=== PATIENT | female | born 1960 | race Caucasian/White ===

== ENCOUNTER → 2021-02-21 | Outpatient (CLI) | payer BC | LOC: ULTRA 07:17 | PROVIDERS: ATTEND Otolaryngology Plastic Surgery within the Head & Neck | DX: E21.0 Primary hyperparathyroidism (principal); E03.9 Hypothyroidism, unspecified ==

== ENCOUNTER 2021-03-13 07:12 | Observation (INO) | payer BC ==
[~2021-03-13] VITALS: Ht 167.6 cm; Wt 129.3 kg
[~2021-03-13 07:12] MED LIST: ATORVASTATIN CA20 MG PO; INDERAL LA60 MG PO; LEVOTHYROXINE150 MCG PO; PROTONIX40 M2 PO; SUMATRIPTAN SU100 MG PO
[2021-03-13 09:30] VITALS: BP 138/63
[2021-03-13 15:24] VITALS: BP 136/77
--- NOTE | 2021-03-13 16:42 | O ---
[facility] [place] [address] OPERATIVE REPORT Name: SAPPHIRE ALVARADO Room #: 444-P [facility].Nilo#: [id number] Admission: 03/13/21 Attend Phys: Lars Gutierrez MD Discharge: Date of : 62 Report #: [id number] THIS REPORT FOR: cc: EASTON DIETRICH MD,EASTON Gutierrez,Lars Hutchins MD ~ DOC #: [id number] cc: Easton Dietrich MD, MD Lars Richardson MD DATE OF SERVICE: 03/13/2021 PREOPERATIVE DIAGNOSIS: 1. Primary hyperparathyroidism. 2. Hypercalcemia. 3. Morbid obesity. POSTOPERATIVE DIAGNOSES: 1. Primary hyperparathyroidism. 2. Hypercalcemia. 3. Morbid obesity. OPERATION PERFORMED: Parathyroidectomy. SURGEON: Lars Gutierrez MD ANESTHESIA: General endotracheal. INDICATIONS: The patient is a 60-year-old referred by her black studies professor, Dr. Almaraz, and her primary care physician, Dr. Dietrich, for otolaryngic evaluation of hyperparathyroidism. The patient was found to have an elevated calcium of 10.8 with a PTH of 146. Localization studies including sestamibi scan and ultrasound failed to locate this mass, but did give a hint of something in the left lobe. Recommendations were made for surgical exploration and parathyroidectomy. DESCRIPTION OF THE PROCEDURE: The patient was brought to the operating room and placed supine on the operating table. After adequate general anesthesia was achieved via endotracheal intubation with a nerve integrity monitoring endotracheal tube, her neck was extended and she was prepped and draped sterilely. The patient has morbid obesity requiring bilateral arm holds in addition to a taping of the adipose tissue in the chest inferiorly to access the neck. The planned incision was marked out in a relaxed skin tension line and injected with 1% Xylocaine with 1:100,000 epinephrine. As a separate part of the procedure, the leads from the endotracheal tube were [facility] [address] [place] [address] OPERATIVE REPORT Name: SAPPHIRE ALVARADO RAJANI Room #: 444-P [facility]..#: [id number] Admission: 03/13/21 Attend Phys: Lars Gutierrez MD Discharge: Date of : 62 Report #: [id number] attached to the facial nerve monitor. Separate ground electrodes were placed in the soft tissue overlying the sternum and contralateral shoulder. Electrode resistance and impedance was measured and found to be acceptable. Threshold and stimulus intensity parameters were set and the patient was monitored for the entirety of the case of approximately two hours in order to locate and protect the recurrent laryngeal nerve. She was then prepped and draped sterilely. The procedure began with incision through skin and subcutaneous tissue and platysma. Subplatysmal flaps were elevated superiorly and inferiorly. There was a great depth of adipose tissue present, which was difficult to mobilize and get out of the way for the procedure. Dissection was made down to the strap muscles. These were divided vertically in the midline and retracted laterally. Again, I needed appendiceal retractors and because of the depth of the wound, making the surgery much more difficult. Once the strap muscles were identified, these were divided vertically in the midline and retracted laterally. Dissection began on the left side, as there was some hint that there might be uptake of the Sesamibi scan and dissection began inferiorly. The inferior parathyroid was found in its usual anatomic position with the inferior thyroid artery just inferior to the lobe. This appeared slightly larger than normal, but not worrisome. The parathyroid probe from [employer] was then used to confirm. Dissection then began laterally on the thyroid gland. Superior parathyroid hint of it was seemed to be found, but it was not definitive. Attention was then turned to the right side. This was dissected as well. The inferior parathyroid on this side was found easily running with the inferior thyroid artery. Again, this was normal size. Superior parathyroid was not identified on this side and there was minimal uptake from the parathyroid probe. Attention was then returned to the left side where I had a hint of this uptake and this was dissected and there seemed to be a bulge palpable inside of the thyroid. Upon dissection then, I got better uptake with the probe. Intrathyroidal parathyroid was then dissected free of the thyroid superior lobe. This measured about 1.5 cm and clearly seemed to be the parathyroid, as this reacted significantly with the parathyroid probe. This was then removed and sent as specimen to pathology. The preoperative iPTH was 298.7. After removal of the second gland, 15 minutes were given and then a separate blood draw was drawn. The PTH after removal of the second suspicious mass was 36.8, indicating adequate removal of the parathyroid mass. Hemostasis was assured with bipolar cautery and clip ligature. Powdered Wei was placed opposite the cricothyroid joint on the left. A 10-Georgian Zain drain was placed through a separate stab incision, curled into the wound, and connected to bulb suction. The wound was closed in layers using 3-0 Vicryl on the strap muscles and then deep subcutaneous, 4-0 Vicryl deep dermal sutures on skin, and 5-0 running Prolene on skin. Mastisol and Steri-Strips were applied followed by an Op-Site. Prior to closure, the 10-Georgian Zain drain had been placed and [address] [place] [address] OPERATIVE REPORT Name: SAPPHIRE ALVARADO Room #: 444-[facility]..#: [id number] Admission: 03/13/21 Attend Phys: Lars Gutierrez MD Discharge: Date of : 62 Report #: [id number] carried through a separate stab incision. This was sutured in place with 2-0 silk and connected to bulb suction, which held. The patient will be watched overnight for monitoring with anticipation of discharge in the morning. This case was made significantly more difficult due to morbid obesity and took a longer period of time to remove the parathyroids as a result. Presuming the patient does well in the morning, discharge will be done with clindamycin 300 mg t.i.d. for 10 days, hydrocodone/acetaminophen 7.5/325 one to two q. 4-6 hours p.r.n., Ondansetron ODT 4 mg tablet one p.o. q. 4-6 hours p.r.n., and Tums two tablets t.i.d. She is instructed on light activity and a soft diet. MD JUDY Jasmine/CAROLYNE/RUTHANN <ELECTRONICALLY SIGNED> By: Lars Gutierrez MD 03/13/21 1642 1251 Sheri Gutierrez MD /marilee
[2021-03-13 19:56] VITALS: BP 136/70
[2021-03-14 04:44] VITALS: BP 99/49
[2021-03-14 07:40] VITALS: BP 102/51
[2021-03-14 10:51] VITALS: BP 102/51
--- NOTE | 2021-03-14 17:06 | PATH ---
[facility] [place] [address] PATHOLOGY RPT PROCEDURE Name: SAPPHIRE ALVARADO Room #: 444-P HUA Bolivar#: [id number] Admission: 03/13/21 Date of : 62 Discharge: 03/14/21 Report #: [id number] Path Case #: [id number] [facility] Accession Number: [id number] . 01 Material submitted: . PART A: parathyroid gland - LEFT INFERIOR PARATHYROID - FS. Modifiers: left, inferior PART B: parathyroid gland - LEFT SUPERIOR INTRATHYROID/PARATHYROID - FS. Modifiers: left, superior . 01 Clinical history: . PARATHYROIDECTOMY HYPERPARATHYROIDISM, PRIMARY, HYPERCALCEMIA, HYPOTHYROIDISM, ADULT . 02 Frozen section diagnosis: . FROZEN SECTION DIAGNOSIS: (By Dr. Danielle Lomax) FSA1. Left inferior parathyroid, excision: - 1.0 cm parathyroid tissue of 0.2 grams present. . FSB1. Left superior intrathyroid/parathyroid, excision: - Markedly hypercellular parathyroid of 1.3 grams. . These findings are discussed with Dr. Lars Gutierrez in OR6 at [facility] and a written report is placed in the patient's chart. (IUV:pit; 03/13/2021) . FROZEN SECTION GROSS DESCRIPTION A. Received fresh from the OR labeled with the patient's name and "left inferior parathyroid" consists of a 1.0 x 0.8 x 0.3 cm 0.2 gram fatty tissue. It is inked black on the external surface and submitted for frozen section as FSA1, the remnant is subsequently submitted for permanent section in entirely in A1. . B. Received fresh from the OR labeled with the patient's name and "left superior intrathyroid/parathyroid" consists of a 1.3 gram red-parker tissue measuring 2.2 x 1.0 x 1.0 cm. The capsule is inked black, and the specimen is bisected. One half is submitted for frozen section as FSB1. The remnant is subsequently submitted for permanent section as B1. The unfrozen portion of the tissue is submitted for permanent sections only as B2. (IUV:pit; 03/13/2021) . Frozen section performed at [facility], [address] [place], [place] [address], [place] [address]. IZV/QTP . 02 Diagnosis: [facility] [place] [address] PATHOLOGY RPT PROCEDURE Name: SAPPHIRE ALVARADO Room #: 444-P [facility] Alex Bolivar#: [id number] Admission: 03/13/21 Date of : 62 Discharge: 03/14/21 Report #: [id number] Path Case #: [id number] A. Parathyroid, left inferior parathyroid, parathyroidectomy: - 1.0 cm (0.2-gram) hypercellular parathyroid parenchyma with fatty replacement. . B. Parathyroid, left superior intrathyroid parathyroid, parathyroidectomy: - Markedly hypercellular parathyroid tissue, 2.2 cm and 1.3 grams compatible with parathyroid adenoma. - No thyroid tissue present/identified. (IUV/db; 03/14/2021) LBQ 03/14/2021 1650 Local . 02 Electronically signed: . Danielle Lomax MD, Pathologist NPI- [id number] . 01 Gross description: . SEE FROZEN SECTION FOR GROSS DESCRIPTION /QTP 03/13/2021 1732 Local . 02 Pathologist provided ICD-10: E03.9 . 02 CPT . 061566, 933076, 090319, [id number] Specimen Comment: A courtesy copy of this report has been sent to [phone], [phone] Specimen Comment: [id number] Specimen Comment: Report sent to / DR COTE Performed at: 01 [facility] [address] [place] [address] [address], [place], [place] [id number] MD Samy Calero MD Phone: [phone] Performed at: [address] [id number] MD Danielle Lomax MD Phone: [phone]
== END 2021-03-14 12:04 | disposition home or self-care (01) ==
LOC: OR 07:12 → TBA 13:34 → 4S 15:20 → OR 15:45 → 4S 15:46
PROVIDERS: ADMIT Otolaryngology Plastic Surgery within the Head & Neck; ATTEND Otolaryngology Plastic Surgery within the Head & Neck
DX: E21.3 Hyperparathyroidism, unspecified (principal); E66.01 Morbid (severe) obesity due to excess calories; Z68.42 Body mass index [BMI] 45.0-49.9, adult; Z88.1 Allergy status to other antibiotic agents
CPT/HCPCS: 50010; 50101; 50386; 50417; 52190; 52220; 52225; 52287; 56524; 56526; 56528; 56760; 57006; 62110; 62900; 65020; 65133; 70005